=== PATIENT | female | born 1940 | race Caucasian/White ===

== ENCOUNTER 2016-05-04 21:15 | Emergency (ER) | payer OTHER ==
[~2016-05-04] VITALS: Ht 170.2 cm; Wt 69.7 kg
[~2016-05-04 21:15] MED LIST: ATORVASTATIN CA80 MG PO; CELEXA40 MG PO; LEVO-T50 MCG PO; LITE COAT ASPI325 M1 PO; METFORMIN HCL500 M1 PO; NOVOLIN N100 UNITS/ SC; RAMIPRIL5 MG PO; TENORETIC 101 TABLET PO; TYLENOL EXTRA500 MG PO; XALATAN2.5 ML BOTH EYES; ZOCOR80 MG PO
[2016-05-05 01:38] VITALS: BP 111/61
== END 2016-05-05 01:39 ==
LOC: EME → EDBD 21:15 → EME 05-05 01:39
PROC: 0HQ0XZZ Repair Scalp Skin, External Approach (ICD-10-PCS; principal; 2016-05-04)
DX: S01.01XA Laceration without foreign body of scalp, initial encounter (principal); W01.0XXA Fall on same level from slipping, tripping and stumbling without subsequent striking against object, initial encounter; Y92.121 Bathroom in nursing home as the place of occurrence of the external cause; Y99.8 Other external cause status; I10 Essential (primary) hypertension; E78.00 Pure hypercholesterolemia, unspecified; E11.9 Type 2 diabetes mellitus without complications; E03.9 Hypothyroidism, unspecified; F32.9 Major depressive disorder, single episode, unspecified; Z86.73 Personal history of transient ischemic attack (TIA), and cerebral infarction without residual deficits; E78.5 Hyperlipidemia, unspecified; Z98.890 Other specified postprocedural states; Z79.4 Long term (current) use of insulin; Z91.041 Radiographic dye allergy status; Z87.891 Personal history of nicotine dependence
CPT/HCPCS: 70450; 72125; 99281; 99284

== ENCOUNTER → 2016-06-17 | Outpatient (CLI) | payer OTHER | LOC: RAD 08:56 | DX: I25.10 Atherosclerotic heart disease of native coronary artery without angina pectoris (principal); R09.89 Other specified symptoms and signs involving the circulatory and respiratory systems; Z98.890 Other specified postprocedural states | CPT/HCPCS: 93880 ==

== ENCOUNTER 2017-02-03 18:58 | Emergency (ER) | payer OTHER ==
[~2017-02-03] VITALS: Ht 167.6 cm; Wt 64.8 kg
[2017-02-03 22:31] VITALS: BP 119/65
== END 2017-02-03 22:36 ==
LOC: EME 18:58
DX: M50.321 Other cervical disc degeneration at C4-C5 level (principal); S00.03XA Contusion of scalp, initial encounter; W05.0XXA Fall from non-moving wheelchair, initial encounter; Y92.129 Unspecified place in nursing home as the place of occurrence of the external cause; I10 Essential (primary) hypertension; E03.9 Hypothyroidism, unspecified; E11.9 Type 2 diabetes mellitus without complications; Z79.4 Long term (current) use of insulin; Z79.82 Long term (current) use of aspirin; Z86.73 Personal history of transient ischemic attack (TIA), and cerebral infarction without residual deficits; Z87.891 Personal history of nicotine dependence
CPT/HCPCS: 70450; 72125; 99281; 99285

== ENCOUNTER 2017-02-20 12:28 | Inpatient (IN) | payer OTHER ==
[~2017-02-20] VITALS: Ht 165.1 cm; Wt 72.8 kg
[2017-02-20 13:30] LABS: BASOPHIL COUNT 0.1 K/uL (0-0.1); EOSINOPHIL (%) 16.2 % (0-5); EOSINOPHIL COUNT 2.2 K/uL (0-0.3); HEMATOCRIT 33.9 % (36.0-46.0); IMMATURE GRANULOCYTE (%) 0.2 % (0.0-0.7); INSTRUMENT ABS NEUTROPHIL CT 8.6 K/uL; LYMPHOCYTE COUNT 2.1 K/uL (1.0-2.8); MCH 30.6 PG (29.0-34.0); MCHC 31.6 G/DL (30.0-36.0); MCV 96.9 FL (83-99); MEAN PLAT.VOLUME 11.2 uM^3 (9.5-12.4); MONOCYTE (%) 5.8 % (3-12); MONOCYTE COUNT 0.8 K/uL (0-0.8); NEUTROPHIL (%) 61.9 % (45-76); NEUTROPHIL COUNT 8.6 K/uL (1.8-6.4); PLATELET COUNT 267 K/uL (156-360); RBC DIS.WIDTH-CV 14.2 % (11.8-14.6); WHITE BLOOD COUNT 13.8 K/uL (4.1-10.2)
[2017-02-20 13:39] LABS: CHLORIDE 110 mEq/L (99-109); POTASSIUM 4.7 mEq/L (3.7-5.4); SODIUM 148 mEq/L (136-147)
[2017-02-20 13:41] LABS: GLUCOSE 138 mg/dL (70-99)
[2017-02-20 13:42] LABS: ANION GAP 17 MEQ/L (2-14)
[2017-02-20 13:45] LABS: GFR ESTIMATE (CALCULATED) 11 mL/min/
[2017-02-20 13:46] LABS: UREA NITROGEN (BUN) 98 mg/dL (9-23)
[2017-02-20 13:59] LABS: ADD MIUA? YES; BILIRUBIN NEGATIVE; BLOOD NEGATIVE; GLUCOSE (STRIP) NEGATIVE; KETONES NEGATIVE; LEUKOCYTES LARGE; NITRITE POSITIVE; PROTEIN (STRIP) 100; SPECIFIC GRAVITY 1.018 (1.000-1.030); UROBILINOGEN 0.2 MG/DL (0.2-1.0)
[2017-02-20 14:01] LABS: COLOR YELLOW ((YELLOW))
[2017-02-20 14:11] LABS: WHITE BLOOD CELLS TNTC /HPF (0-5)
[2017-02-20] MEDS ORDERED: TENORETIC 501 TABLET PO (14:48)
[2017-02-20] MEDS ORDERED: CHILD ASPIRIN81 M1 PO (14:50)
[2017-02-20] MEDS ORDERED: ACETAMINOPHEN325 M1 PO (14:52)
[2017-02-20] MEDS ORDERED: LEXAPRO20 MG PO (14:53)
[2017-02-20] MEDS ORDERED: METFORMIN HCL500 MG PO (14:55)
[2017-02-20] MEDS ORDERED: NOVOLOG 10100 UNITS/ SC (15:00)
[2017-02-20] MEDS ORDERED: GABAPENTIN300 MG PO (15:01)
[2017-02-20] MEDS ORDERED: CLOPIDOGREL75 MG PO (15:02)
[2017-02-20] MEDS ORDERED: SENNA PLUS TAB1 EACH PO (15:03)
[2017-02-20] MEDS ORDERED: EX-LAX15 M1 PO (15:04)
[2017-02-20] MEDS ORDERED: POLYETHYLENE G255 GM PO (15:05)
[2017-02-20] MEDS ORDERED: ONDANSETRON HCL4 MG PO (15:06)
[2017-02-20] MEDS ORDERED: TYLENOL REGULA325 MG PO (15:07)
[2017-02-20] MEDS ORDERED: MILK OF MAGN PO (15:19)
[2017-02-20] MEDS ORDERED: DULCOLAX10 MG PR (15:20)
[2017-02-20] MEDS ORDERED: ATARAX,VISTARIL25 MG PO (15:20)
[2017-02-20] MEDS ORDERED: FLEET ENEMA-AD118 ML PR (15:21)
[2017-02-20 16:47] VITALS: BP 169/70
[2017-02-20 17:31] LABS: POINT-OF-CARE METER ID UU14117124
[2017-02-20 19:22] VITALS: BP 126/62
[2017-02-20 21:32] LABS: POINT-OF-CARE METER ID UU14117124
[2017-02-20 23:08] VITALS: BP 122/58
[2017-02-21 04:25] VITALS: BP 106/56
[2017-02-21 06:24] LABS: POINT-OF-CARE METER ID UU14149397
[2017-02-21 07:59] LABS: ALKALINE PHOSPHATASE 78 IU/L (3-129); ANION GAP 13 MEQ/L (2-14); CHLORIDE 112 MEQ/L (99-109); GFR ESTIMATE (CALCULATED) 14 mL/min/; GLUCOSE 104 mg/dL (70-99); POTASSIUM 4.1 MEQ/L (3.7-5.4); SAMPLE HEMOLYSIS CHECK 0; SAMPLE ICTERIC CHECK 0; SAMPLE LIPEMIA CHECK 0; SODIUM 144 MEQ/L (136-147); TOTAL BILIRUBIN 0.4 MG/DL (0.0-1.0); UREA NITROGEN (BUN) 87 mg/dL (9-23)
[2017-02-21 08:16] LABS: METH RESISTANT S AUREUS PCR POSITIVE (NEGATIVE)
[2017-02-21 08:18] LABS: PROBE CHECK PASS
[2017-02-21 08:20] VITALS: BP 144/56; BP 144/84
[2017-02-21 11:38] LABS: POINT-OF-CARE METER ID UU14188577
[2017-02-21 12:04] VITALS: BP 136/76
[2017-02-21 17:01] LABS: POINT-OF-CARE METER ID UU14208753
[2017-02-21 17:07] VITALS: BP 140/68
[2017-02-21 19:51] VITALS: BP 144/64
[2017-02-21 22:07] LABS: POINT-OF-CARE METER ID UU14208753
[2017-02-21 23:33] VITALS: BP 140/60
[2017-02-22 06:54] LABS: POINT-OF-CARE METER ID UU14117124
[2017-02-22 07:52] LABS: HEMATOCRIT 35.4 % (36.0-46.0); MCH 29.6 PG (29.0-34.0); MCHC 30.2 G/DL (30.0-36.0); MCV 98.1 FL (83-99); MEAN PLAT.VOLUME 11.3 uM^3 (9.5-12.4); PLATELET COUNT 223 K/uL (156-360); RBC DIS.WIDTH-CV 14.2 % (11.8-14.6); RBC DIS.WIDTH-SD 51.8 % (39-53); RED BLOOD COUNT 3.61 M/uL (3.80-5.20); WHITE BLOOD COUNT 11.3 K/uL (4.1-10.2)
[2017-02-22 08:22] VITALS: BP 147/70
[2017-02-22 08:41] LABS: ALKALINE PHOSPHATASE 84 IU/L (3-129); ANION GAP 18 MEQ/L (2-14); CHLORIDE 115 MEQ/L (99-109); GFR ESTIMATE (CALCULATED) 18 mL/min/; GLUCOSE 123 mg/dL (70-99); POTASSIUM 4.5 MEQ/L (3.7-5.4); SAMPLE HEMOLYSIS CHECK 0; SAMPLE ICTERIC CHECK 0; SAMPLE LIPEMIA CHECK 0; SODIUM 149 MEQ/L (136-147); TOTAL BILIRUBIN 0.4 MG/DL (0.0-1.0); UREA NITROGEN (BUN) 74 mg/dL (9-23)
[2017-02-22 09:33] LABS: POINT-OF-CARE METER ID UU14117124
[2017-02-22 11:17] LABS: POINT-OF-CARE METER ID UU14117124
[2017-02-22 16:16] LABS: POINT-OF-CARE METER ID UU14117124
[2017-02-22 16:20] VITALS: BP 134/80
[2017-02-22 21:21] LABS: POINT-OF-CARE METER ID UU14149397
[2017-02-22 23:06] VITALS: BP 103/55
[2017-02-23 06:36] LABS: POINT-OF-CARE METER ID UU14117124
[2017-02-23 07:25] LABS: ALKALINE PHOSPHATASE 74 IU/L (3-129); ANION GAP 11 MEQ/L (2-14); CHLORIDE 120 MEQ/L (99-109); GFR ESTIMATE (CALCULATED) 22 mL/min/; GLUCOSE 116 mg/dL (70-99); POTASSIUM 4.1 MEQ/L (3.7-5.4); SAMPLE HEMOLYSIS CHECK 0; SAMPLE ICTERIC CHECK 0; SAMPLE LIPEMIA CHECK 0; SODIUM 150 MEQ/L (136-147); TOTAL BILIRUBIN 0.3 MG/DL (0.0-1.0); UREA NITROGEN (BUN) 64 mg/dL (9-23)
[2017-02-23 07:56] VITALS: BP 141/69
[2017-02-23 11:04] VITALS: BP 146/68
[2017-02-23 11:35] VITALS: BP 137/72
[2017-02-23 11:37] LABS: POINT-OF-CARE METER ID UU14117124
[2017-02-23 16:10] VITALS: BP 134/68
[2017-02-23 16:42] LABS: POINT-OF-CARE METER ID UU14208753
[2017-02-23 21:37] LABS: POINT-OF-CARE METER ID UU14208753
[2017-02-23 23:51] VITALS: BP 180/88
[2017-02-24 06:28] LABS: POINT-OF-CARE METER ID UU14117124
[2017-02-24 07:33] LABS: ALKALINE PHOSPHATASE 77 IU/L (3-129); ANION GAP 11 MEQ/L (2-14); CHLORIDE 113 MEQ/L (99-109); GFR ESTIMATE (CALCULATED) 26 mL/min/; GLUCOSE 105 mg/dL (70-99); SAMPLE HEMOLYSIS CHECK 0; SAMPLE ICTERIC CHECK 0; SAMPLE LIPEMIA CHECK 0; UREA NITROGEN (BUN) 49 mg/dL (9-23)
[2017-02-24 07:34] LABS: SODIUM 142 MEQ/L (136-147)
[2017-02-24 07:35] LABS: TOTAL BILIRUBIN 0.4 MG/DL (0.0-1.0)
[2017-02-24 08:33] VITALS: BP 160/78
[2017-02-24 11:50] LABS: POINT-OF-CARE METER ID UU14117124
[2017-02-24 11:52] VITALS: BP 150/71
[2017-02-24 15:31] VITALS: BP 164/68
[2017-02-24 16:35] LABS: POINT-OF-CARE METER ID UU14117124
[2017-02-24 21:50] LABS: POINT-OF-CARE METER ID UU14149397
[2017-02-24 23:21] VITALS: BP 174/84
[2017-02-24 23:43] VITALS: BP 158/72
[2017-02-25 06:54] LABS: POINT-OF-CARE METER ID UU14117124
[2017-02-25 07:26] LABS: ALKALINE PHOSPHATASE 73 IU/L (3-129); ANION GAP 9 MEQ/L (2-14); CHLORIDE 109 MEQ/L (99-109); GFR ESTIMATE (CALCULATED) 27 mL/min/; GLUCOSE 89 mg/dL (70-99); POTASSIUM 3.3 MEQ/L (3.7-5.4); SAMPLE HEMOLYSIS CHECK 0; SAMPLE ICTERIC CHECK 0; SAMPLE LIPEMIA CHECK 0; SODIUM 139 MEQ/L (136-147); UREA NITROGEN (BUN) 41 mg/dL (9-23)
[2017-02-25 07:27] LABS: TOTAL BILIRUBIN 0.3 MG/DL (0.0-1.0)
[2017-02-25 08:19] VITALS: BP 150/77
[2017-02-25 12:12] LABS: POINT-OF-CARE METER ID UU14188577
[2017-02-25 15:57] VITALS: BP 160/78
[2017-02-25 16:23] LABS: POINT-OF-CARE METER ID UU14208753
[2017-02-25 20:01] VITALS: BP 197/81
[2017-02-25 21:48] LABS: POINT-OF-CARE METER ID UU14117124
[2017-02-25 23:49] VITALS: BP 152/68
[2017-02-26 01:01] VITALS: BP 152/83
[2017-02-26 04:17] VITALS: BP 172/77
[2017-02-26 07:02] LABS: ALKALINE PHOSPHATASE 79 IU/L (3-129); ANION GAP 12 MEQ/L (2-14); CHLORIDE 109 MEQ/L (99-109); GFR ESTIMATE (CALCULATED) 31 mL/min/; GLUCOSE 94 mg/dL (70-99); POTASSIUM 3.8 MEQ/L (3.7-5.4); SAMPLE HEMOLYSIS CHECK 0; SAMPLE ICTERIC CHECK 0; SAMPLE LIPEMIA CHECK 0; SODIUM 140 MEQ/L (136-147); TOTAL BILIRUBIN 0.4 MG/DL (0.0-1.0); UREA NITROGEN (BUN) 35 mg/dL (9-23)
[2017-02-26 07:03] VITALS: BP 154/66
[2017-02-26 11:10] VITALS: BP 154/75
[2017-02-26 12:45] LABS: POINT-OF-CARE METER ID UU14188625
[2017-02-26 15:13] VITALS: BP 162/68
[2017-02-26 16:35] LABS: POINT-OF-CARE METER ID UU14174225
[2017-02-26 19:40] VITALS: BP 160/70
[2017-02-26 21:23] LABS: POINT-OF-CARE METER ID UU14188625
[2017-02-27 00:03] VITALS: BP 150/70
[2017-02-27 03:34] VITALS: BP 150/64
[2017-02-27 07:02] LABS: ANION GAP 14 MEQ/L (2-14); CHLORIDE 110 MEQ/L (99-109); GFR ESTIMATE (CALCULATED) 36 mL/min/; GLUCOSE 93 mg/dL (70-99); POTASSIUM 3.8 MEQ/L (3.7-5.4); SAMPLE HEMOLYSIS CHECK 1; SAMPLE ICTERIC CHECK 0; SAMPLE LIPEMIA CHECK 0; SODIUM 141 MEQ/L (136-147); UREA NITROGEN (BUN) 29 mg/dL (9-23)
[2017-02-27 07:15] VITALS: BP 183/74
[2017-02-27 11:09] VITALS: BP 118/62
[2017-02-27 11:11] LABS: POINT-OF-CARE METER ID UU14188625
[2017-02-27 15:05] VITALS: BP 148/68
[2017-02-27 16:21] LABS: POINT-OF-CARE METER ID UU13113717
[2017-02-27 22:00] LABS: POINT-OF-CARE METER ID UU13113717
[2017-02-27 23:59] VITALS: BP 132/63
[2017-02-28 07:01] LABS: BASOPHIL COUNT 0.1 K/uL (0-0.1); EOSINOPHIL (%) 5.6 % (0-5); EOSINOPHIL COUNT 0.4 K/uL (0-0.3); HEMATOCRIT 29.8 % (36.0-46.0); IMMATURE GRANULOCYTE (%) 0.4 % (0.0-0.7); INSTRUMENT ABS NEUTROPHIL CT 5.5 K/uL; LYMPHOCYTE COUNT 1.3 K/uL (1.0-2.8); MCH 29.6 PG (29.0-34.0); MCHC 31.5 G/DL (30.0-36.0); MEAN PLAT.VOLUME 11.4 uM^3 (9.5-12.4); MONOCYTE (%) 7.2 % (3-12); MONOCYTE COUNT 0.6 K/uL (0-0.8); NEUTROPHIL (%) 69.9 % (45-76); NEUTROPHIL COUNT 5.5 K/uL (1.8-6.4); PLATELET COUNT 211 K/uL (156-360); RBC DIS.WIDTH-CV 14.5 % (11.8-14.6); RBC DIS.WIDTH-SD 49.3 % (39-53); RED BLOOD COUNT 3.18 M/uL (3.80-5.20); WHITE BLOOD COUNT 7.9 K/uL (4.1-10.2)
[2017-02-28 07:02] LABS: MCV 93.7 FL (83-99)
[2017-02-28 07:22] LABS: ANION GAP 14 MEQ/L (2-14); CHLORIDE 111 MEQ/L (99-109); GFR ESTIMATE (CALCULATED) 31 mL/min/; GLUCOSE 88 mg/dL (70-99); POTASSIUM 3.6 MEQ/L (3.7-5.4); SAMPLE HEMOLYSIS CHECK 0; SAMPLE ICTERIC CHECK 0; SAMPLE LIPEMIA CHECK 0; SODIUM 145 MEQ/L (136-147); UREA NITROGEN (BUN) 25 mg/dL (9-23)
[2017-02-28 07:46] VITALS: BP 154/67
[2017-02-28] MEDS ORDERED: KLOR-CON M1010 MEQ PO (08:23)
== END 2017-02-28 11:15 | DRG 683 ==
LOC: EME 12:28 → 3EAST 15:00 → EDOF 15:00 → CANRESERV 15:25 → ENRESERV 15:25 → 3EAST 16:35 → ENRESERV 02-25 23:09 → 5SOUTH 02-26 00:07
PROVIDERS: Emergency Medicine; Internal Medicine; Internal Medicine Nephrology
DX: N17.9 Acute kidney failure, unspecified (principal); R55 Syncope and collapse; R00.1 Bradycardia, unspecified; I69.354 Hemiplegia and hemiparesis following cerebral infarction affecting left non-dominant side; I50.22 Chronic systolic (congestive) heart failure; I11.0 Hypertensive heart disease with heart failure; E78.5 Hyperlipidemia, unspecified; E11.9 Type 2 diabetes mellitus without complications; E03.9 Hypothyroidism, unspecified; R26.81 Unsteadiness on feet; F32.9 Major depressive disorder, single episode, unspecified; N39.0 Urinary tract infection, site not specified; E86.9 Volume depletion, unspecified; I65.23 Occlusion and stenosis of bilateral carotid arteries; I95.9 Hypotension, unspecified; Z87.891 Personal history of nicotine dependence; Z86.79 Personal history of other diseases of the circulatory system; F01.50 Vascular dementia, unspecified severity, without behavioral disturbance, psychotic disturbance, mood disturbance, and anxiety
CPT/HCPCS: 76770; 80048; 80053; 80069; 81003; 82570; 82948; 84100; 84156; 85025; 85027; 87040; 87641; 99281; 99285; C1755; J0696; J1644; J1815; J7030; J7050